=== PATIENT | female | born 1995 | race Caucasian/White ===

== ENCOUNTER 2020-10-20 18:36 | Emergency (ER) | payer OTHER ==
[2020-10-20 19:31] LABS: #Monocytes 0.7 10x3/uL (0.0-1.1); #Neutrophils 4.5 10x3/uL (1.5-8.4); %Basophils 0.3 % (0.0-2.0); %Eosinophils 0.5 % (0.0-6.0); %Lymphocytes 20.8 % (18.0-47.0); %Monocytes 9.9 % (0.0-10.0); %Neutrophils 68.3 % (40.0-75.0); Hemoglobin 12.6 g/dL (12.0-15.5); Mean Corpuscular HGB CONC 32.7 g/dL (32.0-36.0); Mean Corpuscular Hemoglobin 30.2 pg (27.0-33.0); Mean Corpuscular Volume 92.3 fl (81.6-98.3); Mean Platelet Volume 9.7 fl (7.4-10.4); Platelet Count 259 10x3/uL (150-450); RBC Distribution Width 12.7 % (11.5-14.5); Red Blood Cell (RBC) Count 4.17 10x6/uL (3.90-5.03); White Blood Cell (WBC) Count 6.6 10x3/uL (3.5-10.5)
[2020-10-20 20:39] LABS: Bilirubin Neg (Negative); Blood, Urine 150 (Negative); Clarity Cloudy (Clear); Glucose, Urine (Dipstick) Normal (Negative); Ketone, Urine Negative (Negative); Leukocyte 25 (Negative); Nitrite Negative (Negative); Protein, Urine (Dipstick) 15 mg/dl (Neg-Trace); Urobilinogen Normal mg/dL (Less than 2)
[2020-10-20 20:53] LABS: Bacteria/HPF 3+ HPF (None Seen)
[2020-10-20 20:54] LABS: Mucous/LPF 1+ LPF (<2+); Yeast-Budding Rare HPF (None Seen)
[2020-10-21 20:54] LABS: Chlamydia by PCR Not Detected (NotDetected); GC by PCR Not Detected (NotDetected)
== END 2020-10-20 21:18 | disposition home or self-care (01) ==
LOC: CSHERS 18:36
DX: O20.9 Hemorrhage in early pregnancy, unspecified (principal); Z3A.01 Less than 8 weeks gestation of pregnancy
CPT/HCPCS: 36415; 76856; 81003; 81015; 84702; 85025; 86900; 86901; 87086; 87480; 87491; 87510; 87591; 87660

== ENCOUNTER 2021-05-08 14:41 | Day surgery (SDC) | payer OTHER ==
[2021-05-08] MEDS ORDERED: hydrALAZINE 20 MG/ML VIAL SLOW IVP PRN (15:38)
== END 2021-05-08 16:12 | disposition home or self-care (01) ==
LOC: CSHLD/OP 14:41
PROVIDERS: ATTEND Obstetrics & Gynecology
DX: O47.03 False labor before 37 completed weeks of gestation, third trimester (principal); O34.219 Maternal care for unspecified type scar from previous cesarean delivery; Z3A.35 35 weeks gestation of pregnancy; Z91.018 Allergy to other foods
CPT/HCPCS: 87480; 87510; 87660

== ENCOUNTER 2021-05-20 19:26 | Day surgery (SDC) | payer OTHER ==
[2021-05-20 20:46] LABS: Fetal Membranes Rupture No Membranes Rupture (No Rupture)
[2021-05-20] MEDS ORDERED: hydrALAZINE 20 MG/ML VIAL SLOW IVP PRN (21:39)
== END 2021-05-20 22:47 | disposition home or self-care (01) ==
LOC: CSHLD/OP 19:26
PROVIDERS: ATTEND Obstetrics & Gynecology
DX: O99.891 Other specified diseases and conditions complicating pregnancy (principal); N89.8 Other specified noninflammatory disorders of vagina; O34.211 Maternal care for low transverse scar from previous cesarean delivery; Z3A.37 37 weeks gestation of pregnancy; Z91.018 Allergy to other foods
CPT/HCPCS: 84112

== ENCOUNTER 2021-05-31 09:10 | Outpatient (CLI) | payer OTHER ==
[2021-05-31 22:44] LABS: SARS-CoV-2 PCR by NAA Not Detected (NotDetected)
== END 2021-05-31 09:11 | disposition home or self-care (01) ==
LOC: CSHLAB 09:10
PROVIDERS: ATTEND Obstetrics & Gynecology
DX: Z20.822 Contact with and (suspected) exposure to COVID-19 (principal)
CPT/HCPCS: U0003; U0005

== ENCOUNTER 2021-06-04 12:00 | Inpatient (IN) | payer OTHER ==
[2021-06-05 10:48] VITALS: BMI 44.2
[2021-06-05] MEDS ORDERED: Bicitra 30 ML UDCUP PO PRN (11:30)
[2021-06-05] MEDS ORDERED: Ondansetron PF 4 MG/2 ML Vial IVP PRN ×3 (11:30→18:28)
[2021-06-05] MEDS ORDERED: Lactated Ringer's 1,000 ML IV SCH (11:30)
[2021-06-05] MEDS ORDERED: CEFAZOLIN 2 GM in Premix Bag 1 BAG IVPB SCH (11:30)
[2021-06-05] MEDS ORDERED: Famotidine/PF 20 mg/2ml Vial SLOW IVP PRN (11:30)
[2021-06-05] MEDS ORDERED: Butorphanol Tartrate 1 MG/ML VIAL SLOW IVP PRN (11:30)
[2021-06-05] MEDS ORDERED: hydrALAZINE 20 MG/ML VIAL SLOW IVP PRN ×2 (11:30→18:28)
[2021-06-05] MEDS ORDERED: Promethazine HCl 25 MG/ML VIAL IM PRN ×3 (11:30→18:28)
[2021-06-05] MEDS ORDERED: Acetaminophen 500 MG TAB PO PRN (11:30)
[2021-06-05] MEDS ORDERED: Oxytocin 10 UNITS/ML VIAL ONE ×3 (11:55→13:58)
[2021-06-05] MEDS ORDERED: ePHEDrine Sulfate 50 MG/10 ML VIAL ONE (11:55)
[2021-06-05] MEDS ORDERED: Ondansetron PF 4 MG/2 ML Vial ONE (11:55)
[2021-06-05] MEDS ORDERED: Ketorolac Tromethamine 30 MG/ML VIAL ONE (11:55)
[2021-06-05] MEDS ORDERED: Phenylephrine 10 MG/ML VIAL ONE (11:55)
[2021-06-05] MEDS ORDERED: PHENYLEPHRINE-NS 100 MCG/ML 10 ML SYRINGE ONE (11:55)
[2021-06-05] MEDS ORDERED: Morphine PF 10 MG/10 ML VIAL ONE (11:56)
[2021-06-05] MEDS ORDERED: Fentanyl 100 MCG/2 ML VIAL ONE (11:56)
[2021-06-05 12:02] LABS: Hemoglobin 12.6 g/dL (12.0-15.5); Mean Corpuscular HGB CONC 33.4 g/dL (32.0-36.0); Mean Corpuscular Hemoglobin 29.9 pg (27.0-33.0); Mean Corpuscular Volume 89.3 fl (81.6-98.3); Platelet Count 263 10x3/uL (150-450); RBC Distribution Width 13.6 % (11.5-14.5); Red Blood Cell (RBC) Count 4.22 10x6/uL (3.90-5.03)
[2021-06-05 12:31] LABS: Hep B Surf Ag Non-Reactive S/CO (NonReactive)
[2021-06-05 12:32] LABS: Syphilis Antibody Nonreactive (Nonreactive); Syphilis Antibody Index 0.06 S/CO (<1.00 Non-Reactive)
[2021-06-05 12:37] LABS: HBSAg Index 0.16 S/CO (0-0.99)
[2021-06-05] MEDS ORDERED: Naloxone HCl 0.4 mg/ml Vial IV PRN (14:14)
[2021-06-05] MEDS ORDERED: HYDROmorphone 2 MG/ML VIAL SLOW IVP PRN (14:14)
[2021-06-05] MEDS ORDERED: Meperidine HCl/PF 25 MG/ML VIAL SLOW IVP PRN (14:14)
[2021-06-05] MEDS ORDERED: Ondansetron HCl/PF 4 MG/2 ML Vial IVP PRN (14:14)
[2021-06-05] MEDS ORDERED: Hydrocerin (Eucerin) Cream 120 gm Jar TOP PRN (14:14)
[2021-06-05] MEDS ORDERED: Naloxone HCl 0.4 mg/ml Vial IVP PRN ×2 (14:14)
[2021-06-05] MEDS ORDERED: Fentanyl 100 MCG/2 ML VIAL SLOW IVP PRN (14:14)
[2021-06-05] MEDS ORDERED: Promethazine HCl 25 MG SUPP PR PRN (14:14)
[2021-06-05] MEDS ORDERED: diphenhydrAMINE 50 MG/ML VIAL IVP PRN (14:14)
[2021-06-05] MEDS ORDERED: Communication Order-Pharmacy FS SCH (14:15)
[2021-06-05] MEDS ORDERED: Boostrix 0.5 ML (Tdap) VIAL IM ONE (18:28)
[2021-06-05] MEDS ORDERED: NS w/ Oxytocin 30 units 500 ML IV SCH (18:28)
[2021-06-05] MEDS ORDERED: diphenhydrAMINE 25 MG CAP PO PRN (18:28)
[2021-06-05] MEDS ORDERED: Simethicone Chewable 80 MG TAB PO PRN (18:28)
[2021-06-05] MEDS ORDERED: Bisacodyl 10 MG SUPP PR PRN (18:28)
[2021-06-05] MEDS ORDERED: Varicella virus, LIVE 0.5 ML VIAL SC ONE (18:28)
[2021-06-05] MEDS ORDERED: Measles/Mumps/Rubella 10 MCG/0.5 ML VIAL SC ONE (18:28)
[2021-06-05] MEDS ORDERED: Misoprostol 200 MCG TAB PR PRN (18:28)
[2021-06-05] MEDS ORDERED: Enoxaparin Sodium 40 MG/0.4 ML SYRINGE SC SCH (21:00)
[2021-06-05] MEDS: Ketorolac Tromethamine 30 MG/ML VIAL IVP PRN (22:32)
[2021-06-05] MEDS: Docusate 100 MG CAP PO SCH (23:20)
[2021-06-05] MEDS: Ferrous Sulfate 325 MG TAB PO SCH (23:20)
[2021-06-06] MEDS: Ketorolac Tromethamine 30 MG/ML VIAL IVP PRN (04:27)
[2021-06-06 05:11] LABS: Hemoglobin 11.1 g/dL (12.0-15.5); Mean Corpuscular HGB CONC 32.9 g/dL (32.0-36.0); Mean Corpuscular Hemoglobin 29.7 pg (27.0-33.0); Mean Corpuscular Volume 90.1 fl (81.6-98.3); Mean Platelet Volume 10.2 fl (7.4-10.4); Platelet Count 225 10x3/uL (150-450); RBC Distribution Width 13.4 % (11.5-14.5); Red Blood Cell (RBC) Count 3.74 10x6/uL (3.90-5.03); White Blood Cell (WBC) Count 11.8 10x3/uL (3.5-10.5)
[2021-06-06] MEDS: Ferrous Sulfate 325 MG TAB PO SCH ×2 (07:19→23:31)
[2021-06-06] MEDS: Docusate 100 MG CAP PO SCH ×2 (09:13→21:33)
[2021-06-06] MEDS: Prenatal Vitamin 1 TAB PO SCH (09:13)
[2021-06-06] MEDS: HYDROcodone/Acetaminophen 5/325 mg Tablet PO PRN ×4 (09:18→23:25)
[2021-06-06] MEDS: Ibuprofen 800 MG TAB PO SCH ×2 (14:02→21:34)
[2021-06-06] MEDS ORDERED: Lanolin Ointment 7 GM TUBE TOP PRN (18:12)
[2021-06-07] MEDS: HYDROcodone/Acetaminophen 5/325 mg Tablet PO PRN ×3 (04:13→14:12)
[2021-06-07] MEDS: Ibuprofen 800 MG TAB PO SCH ×2 (05:57→14:13)
[2021-06-07] MEDS: Ferrous Sulfate 325 MG TAB PO SCH (07:37)
[2021-06-07 08:39] VITALS: BP 112/59; TEMP 98
[2021-06-07] MEDS: Prenatal Vitamin 1 TAB PO SCH (09:55)
[2021-06-07] MEDS: Docusate 100 MG CAP PO SCH (09:59)
== END 2021-06-07 14:40 | disposition home or self-care (01) | DRG 788 ==
LOC: UNDOADMIN 06-05 09:59 → CSHLD 06-05 09:59 → CSHPP 06-05 16:46
PROVIDERS: ADMIT Obstetrics & Gynecology; ATTEND Obstetrics & Gynecology
PROC: 10D00Z1 Extraction of Products of Conception, Low, Open Approach (ICD-10-PCS; principal; 2021-06-05)
PROC: 0UB90ZZ Excision of Uterus, Open Approach (ICD-10-PCS; 2021-06-05)
DX: O34.211 Maternal care for low transverse scar from previous cesarean delivery (principal); Z3A.39 39 weeks gestation of pregnancy; Z37.0 Single live birth; D25.9 Leiomyoma of uterus, unspecified; O99.892 Other specified diseases and conditions complicating childbirth; Z91.018 Allergy to other foods
CPT/HCPCS: 36415; 51702; 85027; 86780; 86850; 86900; 86901; 87340; 88305; J1650; J1885; J2274; J2370; J2405; J2590; J3010